=== PATIENT | female | born 1935 | race Caucasian/White ===

== ENCOUNTER → 2016-08-02 | Outpatient (CLI) | payer MEDICARE, OTHER ==
[~2016-08-02] MED LIST: ALLEGRA180 MG PO; ALPRAZOLAM ER1 MG; CARDURA4 M1 PO; JANTOVEN2 MG PO; MEDROL4 MG/DOSE- PO; NORVASC2.5 MG PO; PACERONE100 MG PO; PERCOCET 5-3251 TAB PO; PRILOSEC20 MG PO; VALTREX500 MG DOB; ZOCOR20 MG PO
--- NOTE | ~2016-08-02 | US37 ---
[facility] A Service of [facility] & [facility] RADIOLOGY TEXT RESULTS PATIENT: TI JACK LOCATION: CNIV : 37 UNIT #: [id number] AGE: [address]: James Reno MD SEX: F ORDER DR: [id number] [facility] [address] [place], [place] [address] [id number] O MR#: [id number] Acc #: [id number] NAME: TI JACK : 1935 SEX: F STUDY DATE/TIME: 08/02/2016 12:31 UNIT: CNIV ROOM: STUDY DESCRIPTION: US Carotid W/Doppler Bilateral Attending Physician: James Reno M.D. Referring Physician: James Reno M.D. Ordering Physician: James Reno M.D. Primary Care Physician: Sudhir Alcantara M.D. MEDICAL IMAGING REPORT This report is preliminary unless electronic signature is present EXAM Carotid duplex scan. DATE OF EXAMINATION 08/02/2016 HISTORY Carotid bruit. Hypertension. FINDINGS The right common carotid artery has minimal plaque. There is only a small amount of dense plaque in the right carotid bulb which extends up into the proximal internal and external carotid arteries. Peak systolic velocity in the distal right internal carotid artery is 101 cm/sec with an end-diastolic velocity of 30 cm/sec. The ICA/CCA ratio on the right is 1.2. Peak systolic velocity in the right external carotid artery is 171 cm/sec. The right vertebral artery is patent with antegrade flow. The left common carotid artery has minimal plaque. There is only a small amount of heterogeneous plaque in the left carotid bulb which extends up into the proximal internal and external carotid arteries. Peak systolic velocity in the proximal left internal carotid artery is 73 cm/sec with an end-diastolic velocity of 15 cm/sec. The ICA/CCA ratio on the left is 0.9. Peak systolic velocity in the left external carotid artery is 173 cm/sec. The left vertebral artery is patent with antegrade flow. IMPRESSION A small amount of plaque, but no significant stenosis (less than 50%) in the internal carotid arteries bilaterally. Significant stenosis of the external carotid arteries on both sides. Patent vertebral arteries bilaterally with antegrade flow. [facility] A Service of [facility] RADIOLOGY TEXT RESULTS PATIENT: TI JACK LOCATION: [facility] : 37 UNIT #: [id number] AGE: [address]: James Reno MD SEX: F ORDER DR: Dictated by... Tristan Luna M.D. THIS IS AN ELECTRONICALLY VERIFIED REPORT Tristan Luna M.D. at 08/04/2016 6:47 PM SARA/juvenal TD: 08/04/2016 10:21 JOB #: [id number] MEDICAL IMAGING REPORT COPY
== END | disposition home or self-care (01) ==
LOC: CNIV 12:04
DX: R09.89 Other specified symptoms and signs involving the circulatory and respiratory systems (principal); I65.23 Occlusion and stenosis of bilateral carotid arteries
CPT/HCPCS: 93880